=== PATIENT | female | born 1955 | race Caucasian/White ===

== ENCOUNTER 2024-04-19 19:06 | Emergency (ER) | payer MEDICARE, OTHER, SELFPAY ==
[2024-04-19 19:09] VITALS: BP 181/76; PULSE 69; RESP 18; TEMP 36.8; O2SAT 97; BMI 36.6
[2024-04-19 19:43] LABS: RBC Urine 30-100/HPF (0-5/HPF); Urine Volume 6; WBC Urine 0-1/HPF (0-5/HPF)
[2024-04-19 19:44] LABS: Bacteria Urine Occasional (0-1); Culture Indicated Urine Cult Not Indicated; Squamous Epithelial Cell Urine 1-5 /HPF (0-5/HPF)
--- NOTE | 2024-04-19 19:49 | DI.CT.S_ITS ---
PROCEDURE: CT KIDNEY URETER BLADDER (KUB) INDICATIONS: R SIDED ABD PAIN, HEMATURIA, HX STONES TECHNIQUE: Axial sections were acquired from the lung bases to the pubic symphysis. Coronal and sagittal reformats were performed. For radiation dose reduction, the following was used: automated exposure control, adjustment of mA and/or kV according to patient size. COMPARISON: None. FINDINGS: Image quality: Diagnostic. Lower Chest: No significant findings. URINARY: Right Kidney: Mild to moderate hydronephrosis. No renal stones. Right Ureter: Obstructing 4 millimeter stone within the proximal right ureter resulting in mild to moderate upstream hydroureter. Left Kidney: Nonobstructing 5 millimeter stone at the inferior pole. No hydronephrosis. Left Ureter: No hydroureter. Bladder: Normal wall thickness. No stones. ABDOMEN: Liver: No contour-deforming solid mass. Gallbladder: Contracted. No calcified stones. Biliary ducts: No biliary dilation. Pancreas: No ductal dilation. Spleen: Size is within normal limits. Adrenal Glands: No adrenal nodules. Stomach and Bowel: Normal colonic caliber, without significant wall thickening. Peritoneum: No abnormal intraperitoneal fluid. No free air. Ventral Wall: No hernia. Abdominal Nodes: No enlarged retroperitoneal or mesenteric lymph nodes. Vessels: Aorta and inferior vena cava are normal in size. Atherosclerotic vascular calcifications. PELVIS: Pelvic Organs: Unremarkable. Pelvic Nodes: Unremarkable. Miscellaneous: No inguinal hernias are seen. Bones: Degenerative changes of the spine. IMPRESSION: 1. Obstructing 4 millimeter stone within the proximal right ureter resulting in mild to moderate upstream hydroureteronephrosis. 2. Nonobstructing 5 millimeter stone at the inferior pole of the left kidney. Dictated by: Rivera Delgado M.D. on 04/19/2024 at 20:45 Approved by: Rivera Delgado M.D. on 04/19/2024 at 20:49
--- NOTE | 2024-04-19 20:26 | ED.ABDPAIN ---
HPI - Abdominal Pain General Chief Complaint: Abdominal Pain Stated Complaint: urinary problem Time Seen by Provider: 04/19/24 19:10 Source: patient Mode of arrival: Ambulatory History of Present Illness HPI narrative: 69-year-old female with history of kidney stones presents by private vehicle from home for right groin pain. Symptoms began abruptly at approximately 5:00 p.m. this evening. While on the way to the emergency department the symptoms began to subside and patient was currently pain-free. Last kidney stone 1-2 years ago, she states that in the remote past she has had to have surgery to remove a stone. Related Data Home Medications Medication Instructions Recorded Confirmed buspirone 15 mg tablet 15 mg PO QDAY ##0 04/29/17 citalopram 20 mg tablet (Celexa) 20 mg PO QDAY ##0 04/29/17 estradiol 0.1 mg/24 hr semiweekly 1 patch topical SEE INSTRUCTIONS 04/29/17 transdermal patch (Vivelle-Dot) ##0 fluticasone propionate 50 50 mcg INH BID ##0 04/29/17 mcg/actuation blister powder for inhalation (Flovent Diskus) levothyroxine 25 mcg tablet 25 mcg PO QAM ##0 04/29/17 liothyronine 5 mcg tablet (Cytomel) 5 mcg PO QAM ##0 04/29/17 progesterone micronized 200 mg 200 mg PO BID ##0 04/29/17 capsule (Prometrium) Previous Rx's Medication Instructions Recorded hydrocodone 5 mg-acetaminophen 325 1 tab PO Q8H PRN pain #12 tabs 04/19/24 mg tablet ondansetron 4 mg disintegrating 4 mg PO Q8H PRN nausea and 04/19/24 tablet vomiting #30 tabs tamsulosin 0.4 mg capsule (Flomax) 0.4 mg PO DAILY #30 caps 04/19/24 Allergies Allergy/AdvReac Type Severity Reaction Status Date / Time Sulfa (Sulfonamide Allergy Mild Seizure Verified 04/19/24 19:14 Antibiotics) Patient History Social History Smoking Status: Never smoker Smoking Status: Never smoker alcohol intake frequency: a few times a week Substance Use Type: marijuana Exam Initial Vital Signs Initial Vital Signs: Vital Signs Temperature 98.3 F 04/19/24 19:09 Pulse Rate 69 04/19/24 19:09 Respiratory Rate 18 04/19/24 19:09 Blood Pressure 181/76 H 04/19/24 19:09 Pulse Oximetry 97 04/19/24 19:09 Oxygen Delivery Method Room Air 04/19/24 19:09 Const: Awake, alert, no acute distress, nontoxic appearing Cardiac: regular rate, regular rhythm RESP: unlabored, clear bilaterally, no wheezing GI: Soft, nontender, nondistended, no rebound, no guarding MSK back: No midline tenderness, no CVA tenderness bilaterally Skin: Warm, Dry, intact, no rashes Neuro: AO x3, CN II-XII grossly intact, moves all extremities Course Orders Ordered: ED Orders 04/19/24 19:26 Urine Microscopic Stat 04/19/24 19:49 CT kidney ureter bladder (KUB) Stat 04/19/24 20:20 CBC Auto Diff [Complete Blood Count AUTO DIFF] Stat CMP [Comprehensive Metabolic Panel] Stat Discontinued Medications Hydrocodone Bitart/Acetaminophen (Hydrocodone/Acet 5/325 Prepack) 1 bottle MISC DIRECTED ONE Stop: 04/19/24 21:10 Last Admin: 04/19/24 21:17 Dose: 1 bottle Documented By: ARBEN Ondansetron HCl (Ondansetron 4 Mg/2 Ml Inj) 4 mg IV NOW PRN PRN Reason: Nausea And Vomiting Ondansetron HCl (Ondansetron 4 Mg Odt) 4 mg SL NOW PRN PRN Reason: Nausea And Vomiting Vital Signs Vital signs: Vital Signs - 8 hr 04/19/24 19:09 04/19/24 21:23 Temperature 98.3 F Pulse Rate 69 77 Respiratory Rate 18 16 Blood Pressure 181/76 H 164/72 H Pulse Oximetry 97 95 Oxygen Delivery Method Room Air Room Air MDM - Abdominal Pain Differential Diagnosis Differential diagnosis: Likely abdominal pain, acute appendicitis and calculus of kidney Lab Data 04/19/24 20:20 04/19/24 20:20 Labs: Lab Results 04/19/24 04/19/24 Range/Units 19:26 20:20 WBC 8.5 (4.5-11.0) X10^3/uL RBC 4.41 (4.0-5.2) X10^6/uL Hgb 13.7 (12.0-16.0) g/dL Hct 39.8 (36-46) % MCV 90.1 (80-100) fL MCH 31.0 (26-34) PG MCHC 34.4 (30-36) % RDW 13.5 (11.6-14.8) % Plt Count 202 (150-400) X10^3/uL Neut % (Auto) 67.6 (50-75) % Lymph % (Auto) 21.1 L (25-40) % [place] % (Auto) 8.0 (3-14) % Eos % (Auto) 3.0 (2-4) % Baso % (Auto) 0.3 (0-2) % Neut # (Auto) 5800 (3341-4661) /uL Lymph # (Auto) 1800 (8605-7388) /uL [place] # (Auto) 700 (0-900) /uL Eos # (Auto) 300 (0-450) /uL Baso # (Auto) 0 (0-100) /uL Sodium 138 (137-145) mmol/L Potassium 4.1 (3.4-5.1) mmol/L Chloride 105 (98-107) mmol/L Carbon Dioxide 27 (22-32) mmol/L BUN 14 (7-17) mg/dL Creatinine 1.01 (0.52-1.04) mg/dL Estimated GFR > 60 (>60) mL/min BUN/Creatinine Ratio 13.9 (6-22) Glucose 124 H (80-110) mg/dL Calcium 9.2 (8.4-10.2) mg/dL Total Bilirubin 0.4 (0.2-1.3) mg/dL AST 37 H (14-36) IU/L ALT 38 H (<35) IU/L Alkaline Phosphatase 75 (38-126) U/L Total Protein 7.6 (6.3-8.2) g/dL Albumin 4.3 (3.5-5.0) g/dL Globulin 3.3 (1.7-4.1) g/dL Albumin/Globulin Ratio 1.3 (1.0-2.8) Urine RBC 30-100/hpf H (0-5/HPF) Urine WBC 0-1/hpf (0-5/HPF) Ur Squamous Epith Cells 1-5 /hpf (0-5/HPF) Urine Bacteria Occasional (0-1) (None) Ur Culture Indicated? Cult not indicated Vol Urine Centrifuged 6 Point of care testing: Urine Dip Bedside Urine Glucose Negative Bedside Urine Bilirubin - Negative Bedside Urine Ketone - Negative Urine Specific [place] 1.020 Bedside Urine Occult Blood +++ Bedside Urine pH 6.0 Bedside Urine Protein +/- 15 Bedside Urine Urobilinogen +/- 1mg Bedside Urine Nitrite - Negative Bedside Urine Leukocytes - Negative Esterase Imaging Data CT scan - abdomen/pelvis: Radiologist's Impression: PROCEDURE: CT KIDNEY URETER BLADDER (KUB) INDICATIONS: R SIDED ABD PAIN, HEMATURIA, HX STONES TECHNIQUE: Axial sections were acquired from the lung bases to the pubic symphysis. Coronal and sagittal reformats were performed. For radiation dose reduction, the following was used: automated exposure control, adjustment of mA and/or kV according to patient size. COMPARISON: None. FINDINGS: Image quality: Diagnostic. Lower Chest: No significant findings. URINARY: Right Kidney: Mild to moderate hydronephrosis. No renal stones. Right Ureter: Obstructing 4 millimeter stone within the proximal right ureter resulting in mild to moderate upstream hydroureter. Left Kidney: Nonobstructing 5 millimeter stone at the inferior pole. No hydronephrosis. Left Ureter: No hydroureter. Bladder: Normal wall thickness. No stones. ABDOMEN: Liver: No contour-deforming solid mass. Gallbladder: Contracted. No calcified stones. Biliary ducts: No biliary dilation. Pancreas: No ductal dilation. Spleen: Size is within normal limits. Adrenal Glands: No adrenal nodules. Stomach and Bowel: Normal colonic caliber, without significant wall thickening. Peritoneum: No abnormal intraperitoneal fluid. No free air. Ventral Wall: No hernia. Abdominal Nodes: No enlarged retroperitoneal or mesenteric lymph nodes. Vessels: Aorta and inferior vena cava are normal in size. Atherosclerotic vascular calcifications. PELVIS: Pelvic Organs: Unremarkable. Pelvic Nodes: Unremarkable. Miscellaneous: No inguinal hernias are seen. Bones: Degenerative changes of the spine. IMPRESSION: 1. Obstructing 4 millimeter stone within the proximal right ureter resulting in mild to moderate upstream hydroureteronephrosis. 2. Nonobstructing 5 millimeter stone at the inferior pole of the left kidney. Dictated by: Rivera Delgado M.D. on 04/19/2024 at 20:45 Approved by: Rivera Delgado M.D. on 04/19/2024 at 20:49 MDM Narrative Medical decision making narrative: Well-appearing patient with right-sided abdominal pain, concern for recurrent stones. Urinalysis does show presence of RBCs. Exam otherwise reassuring. Laboratory work, CT KUB ordered for assessment. Laboratory work shows no significant abnormalities. CT shows obstructing 4 mm stone with mild hydronephrosis. Patient reassessed, resting comfortably in bed, has had no return of pain since arrival to the emergency department. She was counseled on lab and imaging findings. She has established care with [facility] and states that she will call them tomorrow for a follow up appointment. She has not been on Flomax since her last stone several years ago. Patient given Flomax, pain medications, as needed nausea medications. ED return precautions discussed at bedside with patient and significant other prior to discharge. Discharge Plan Departure Patient Disposition: Home Clinical Impression: Calculus of kidney Instructions: DI for Kidney Stones Activity Restrictions/Additional Instructions: You have a 4mm kidney stone on the right hand side with a moderate amount of swelling behind the kidney, however your kidney function is normal in your urine does not have any infection. Take Flomax daily. A nausea medication has also been sent to the pharmacy if you need it. You may take 1000 mg of Tylenol and 400 mg of ibuprofen every 6-8 hours per label instructions as needed for pain. If this does not control your symptoms then a short course of pain medication has been sent to your pharmacy. Do not take this medication with alcohol or before driving as this causes drowsiness and can increase your risk of accident or falls. This medication also causes constipation, take a daily stool softener with this medication. The prescribed pain medication does have Tylenol in it, make sure to take no more than 4000 mg of Tylenol total daily. Prescriptions: New tamsulosin [Flomax] 0.4 mg capsule 0.4 mg PO DAILY Qty: 30 0RF ondansetron 4 mg tablet,disintegrating 4 mg PO Q8H PRN (Reason: nausea and vomiting) Qty: 30 0RF hydrocodone-acetaminophen 5-325 mg tablet 1 tab PO Q8H PRN (Reason: pain) Qty: 12 0RF No Action fluticasone propionate [Flovent Diskus] 50 MCG blister with device 50 mcg INH BID Qty: 0 estradiol [Vivelle-Dot] 0.1 MG/24 HR patch semiweekly 1 patch Topical SEE INSTRUCTIONS Qty: 0 progesterone micronized [Prometrium] 200 MG capsule 200 mg PO BID Qty: 0 levothyroxine 25 MCG tablet 25 mcg PO QAM Qty: 0 liothyronine [Cytomel] 5 MCG tablet 5 mcg PO QAM Qty: 0 buspirone 15 MG tablet 15 mg PO QDAY Qty: 0 citalopram [Celexa] 20 MG tablet 20 mg PO QDAY Qty: 0 Referrals: Miscellaneous,Doctor, MD [Primary Care Provider] - Stand Alone Forms: Patient Portal/API/Survey
[2024-04-19 20:38] LABS: Add Manual Diff / Slide Review NO; Basophils Absolute Auto 0 /uL (0-100); Basophils Percent Auto 0.3 % (0-2); Eosinophils Absolute Auto 300 /uL (0-450); Hematocrit 39.8 % (36-46); Hemoglobin 13.7 g/dL (12.0-16.0); Lymphocytes Absolute Auto 1800 /uL (1100-4500); Lymphocytes Percent Auto 21.1 % (25-40); Mean Corpuscular HGB Conc 34.4 % (30-36); Mean Corpuscular Volume 90.1 fL (80-100); Monocytes Absolute Auto 700 /uL (0-900); Neutrophils Absolute Auto 5800 /uL (1500-7000); Neutrophils Percent Auto 67.6 % (50-75); Platelet Count 202 X10^3/uL (150-400); Red Blood Cell Count 4.41 X10^6/uL (4.0-5.2); Red Cell Distribution Width 13.5 % (11.6-14.8); White Blood Cell Count 8.5 X10^3/uL (4.5-11.0)
[2024-04-19 20:49] LABS: Alanine Aminotransferase 38 IU/L (<35); Albumin 4.3 g/dL (3.5-5.0); Albumin Globulin Ratio 1.3 (1.0-2.8); Alkaline Phosphatase 75 U/L (38-126); Aspartate Aminotransferase 37 IU/L (14-36); BUN Creatinine Ratio 13.9 (6-22); Bilirubin Total 0.4 mg/dL (0.2-1.3); Blood Urea Nitrogen 14 mg/dL (7-17); Calcium 9.2 mg/dL (8.4-10.2); Carbon Dioxide 27 mmol/L (22-32); Chloride 105 mmol/L (98-107); Estimated Glomerular Filt Rate > 60 mL/min (>60); Globulin 3.3 g/dL (1.7-4.1); Glucose 124 mg/dL (80-110); HEMOLYSIS 50 (0-50); Potassium 4.1 mmol/L (3.4-5.1); Sodium 138 mmol/L (137-145); Total Protein 7.6 g/dL (6.3-8.2)
[2024-04-19] MEDS: HYDROCODONE/ACET 5/325 PREPACK 1 BOTTLE MISC (21:17)
[2024-04-19 21:23] VITALS: BP 164/72; PULSE 77; RESP 16; O2SAT 95
== END 2024-04-19 21:24 | disposition home or self-care (01) ==
PROVIDERS: Emergency Provider Emergency Medicine
DX: N20.0 Calculus of kidney (principal); Z87.442 Personal history of urinary calculi
CPT/HCPCS: 36415; 74176; 80053; 81003; 81015; 85025; 99283; 99284